=== PATIENT | female | born 1955 | race Caucasian/White ===

== ENCOUNTER 2019-02-16 09:30 | Day surgery (SDC) | payer OTHER ==
[2019-02-16] MEDS ORDERED: ACETAMINOPHEN 500 MG TAB PO (12:00)
[2019-02-16] MEDS ORDERED: SOD CHLORIDE 0.9% IV (12:00)
[2019-02-16] MEDS ORDERED: DIPHENHYDRAMINE 25 MG CAP PO (12:00)
[2019-02-16] MEDS ORDERED: METHOTREXATE IV (12:00)
[2019-02-16] MEDS ORDERED: DEXAMETHASONE IV (12:00)
[2019-02-16] MEDS ORDERED: LIDOCAINE 1% (MPF) 5 ML VIAL (12:34)
== END 2019-02-16 14:49 | disposition home or self-care (01) ==
LOC: SDS 09:30
DX: C85.90 Non-Hodgkin lymphoma, unspecified, unspecified site (principal); R73.03 Prediabetes
CPT/HCPCS: 62270; 96450

== ENCOUNTER 2019-02-18 09:26 | Day surgery (SDC) | payer OTHER ==
[~2019-02-18 09:26] MED LIST: ACETAMINOPHEN 500 MG TAB PO; DEXAMETHASONE IT; DEXAMETHASONE IV; DIPHENHYDRAMINE 25 MG CAP PO; METHOTREXATE IT; METHOTREXATE IV; SOD CHLORIDE 0.9% IT; SOD CHLORIDE 0.9% IV
== END 2019-02-18 14:10 | disposition home or self-care (01) ==
LOC: SDS 09:26
DX: C85.90 Non-Hodgkin lymphoma, unspecified, unspecified site (principal); R73.03 Prediabetes
CPT/HCPCS: 62270

== ENCOUNTER 2019-02-23 09:29 | Day surgery (SDC) | payer OTHER ==
[2019-02-23] MEDS ORDERED: DIPHENHYDRAMINE 25 MG CAP PO (10:30)
[2019-02-23] MEDS ORDERED: ACETAMINOPHEN 500 MG TAB PO (10:30)
[2019-02-23] MEDS ORDERED: DEXAMETHASONE IT (11:00)
[2019-02-23] MEDS ORDERED: SOD CHLORIDE 0.9% IT (11:00)
[2019-02-23] MEDS ORDERED: METHOTREXATE IT (11:00)
[2019-02-23] MEDS ORDERED: LIDOCAINE 1% (MPF) 5 ML VIAL (12:20)
== END 2019-02-23 13:37 | disposition home or self-care (01) ==
LOC: SDS 09:29
DX: C85.90 Non-Hodgkin lymphoma, unspecified, unspecified site (principal); R73.03 Prediabetes
CPT/HCPCS: 62270

== ENCOUNTER 2019-02-25 09:17 | Day surgery (SDC) | payer OTHER ==
[2019-02-25] MEDS ORDERED: METHOTREXATE IT (10:30)
[2019-02-25] MEDS ORDERED: SOD CHLORIDE 0.9% IT (10:30)
[2019-02-25] MEDS ORDERED: DEXAMETHASONE IT (10:30)
[2019-02-25] MEDS: DIPHENHYDRAMINE 25 MG CAP PO (10:43)
[2019-02-25] MEDS: ACETAMINOPHEN 500 MG TAB PO (10:43)
== END 2019-02-25 13:10 | disposition home or self-care (01) ==
LOC: SDS 09:17
DX: C85.80 Other specified types of non-Hodgkin lymphoma, unspecified site (principal); R73.03 Prediabetes
CPT/HCPCS: 62270; 96450